=== PATIENT | female | born 1990 | race Caucasian/White ===

== ENCOUNTER 2019-09-13 02:25 | Emergency (ER) | payer BC, OTHER ==
[~2019-09-13] VITALS: Ht 157.5 cm; Wt 63.5 kg
[2019-09-13 02:25] VITALS: BP 144/83
== END 2019-09-13 02:55 | disposition home or self-care (01) ==
LOC: ER 02:27
DX: T78.40XA Allergy, unspecified, initial encounter (principal); Z90.89 Acquired absence of other organs; Z98.890 Other specified postprocedural states; Z91.018 Allergy to other foods; X58.XXXA Exposure to other specified factors, initial encounter